=== PATIENT | female | born 1980 | race Caucasian/White ===

== ENCOUNTER 2017-11-09 01:42 | Emergency (ER) | payer SELFPAY ==
--- NOTE | 2017-11-09 01:57 | ED.PDOC ---
History of Present Illness - General Chief Complaint: Problem Stated Complaint: rt flank pain Time Seen by Provider: 11/09/17 01:57 Source: patient Exam Limitations: no limitations - History of Present Illness Initial Comments: Sabrina Zapata 37 y/o female stated had bilateral sharp flank pain mostly on her right side the last 4 days intemittenly but since not getting better feels like getting worse and also had fever yesterday;no dysuria ,no hematuria . Timing/Duration: other - 4 days Severity: moderate Improving Factors: nothing Worsening Factors: eating Associated Symptoms: other - see hpi Allergies/Adverse Reactions: Allergies NO KNOWN ALLERGY Allergy (Verified 07/30/14 20:18) Home Medications: Ambulatory Orders Acetaminophen W/ Codeine [Tylenol W/ CODEINE #3] 1 ea PO Q4-6H PRN #14 Cephalexin [Keflex] 500 mg PO TID #30 cap 07/30/14 Baclofen 10 mg PO BID PRN #20 tab 11/09/17 Naproxen [Naproxen Dr] 375 mg PO BID #20 tab 11/09/17 Review of Systems - Review of Systems Constitutional: States: no symptoms reported EENTM: States: no symptoms reported Respiratory: States: no symptoms reported Cardiology: States: no symptoms reported Gastrointestinal/Abdominal: States: see HPI Genitourinary: States: no symptoms reported Musculoskeletal: States: no symptoms reported Skin: States: no symptoms reported Neurological: States: no symptoms reported All other Systems: Reviewed and Negative, No Change from Baseline Past Medical History (General) - Patient Medical History Hx Hypertension: Yes Surgical History: other - btl - Vaccination History Hx Tetanus, Diphtheria Vaccination: Yes Hx Influenza Vaccination: No Hx Pneumococcal Vaccination: No - Social History Hx Alcohol Use: No Hx Substance Use: No Hx Substance Use Treatment: No Hx Depression: No - Female History Patient is a Female of Child Bearing Age (10 -59 yrs old): Yes Hx Last Menstrual Period: 11/09/17 Patient : No Family Medical History - Family History Mother Family History: Unknown Living Status: Physical Exam - Physical Exam General Appearance: Alert, Comfortable, No apparent distress Eye Exam: bilateral normal Ears, Nose, Throat: normal ENT inspection, normal pharynx Neck: non-tender, supple Respiratory: chest non-tender, lungs clear, normal breath sounds Cardiovascular/Chest: normal peripheral pulses, regular rate, rhythm, no murmur Peripheral Pulses: radial,right: 2+, radial,left: 2+ Gastrointestinal/Abdominal: normal bowel sounds, non tender, soft, no organomegaly Back Exam: no CVA tenderness, no vertebral tenderness Extremity: non-tender, normal inspection, no calf tenderness Neurologic: alert, oriented x 3 Skin Exam: normal color, warm/dry Progress - Progress Progress: 11/09/17 02:47 Vital Signs - 8 hr 11/09/17 01:57 Temperature 97.8 F Pulse Rate [ 72 left] Respiratory 18 Rate Blood Pressure 148/97 [left] O2 Sat by Pulse 18 L Oximetry - Results/Orders Results/Orders: 11/09/17 01:58 IV Care:Saline Lock per Protoc QSHIFT Lactated Ringers [Lr] 1,000 ml IVS ONCE 11/09/17 02:40 HCG,QUALITATIVE URINE Stat Laboratory Results - last 24 hr 11/09/17 11/09/17 11/09/17 01:56 01:58 01:58 WBC 5.0 RBC 4.81 Hgb 14.6 Hct 42.9 MCV 89.2 MCH 30.4 MCHC 34.1 RDW 13.1 Plt Count 275 MPV 6.6 L Absolute Neuts (auto) 2.60 Absolute Lymphs (auto) 1.40 Absolute Monos (auto) 0.70 Absolute Eos (auto) 0.20 Absolute Basos (auto) 0.10 Neutrophils % 51.8 Lymphocytes % 28.2 Monocytes % 14.4 H Eosinophils % 4.5 Basophils % 1.1 Sodium 135 Potassium 4.0 Chloride 100 L Carbon Dioxide 30 Anion Gap 9.0 L BUN 9 Creatinine 0.66 BUN/Creatinine Ratio 13.6 Random Glucose 103 Serum Osmolality 269.0 L Calcium 8.9 Total Bilirubin 0.3 AST 21 ALT 24 Alkaline Phosphatase 62 Serum Total Protein 7.3 Albumin 3.9 Globulin 3.4 Albumin/Globulin Ratio 1.1 Lipase 30 Urine Color Yellow Urine Appearance Clear Urine pH 7.0 Ur Specific [place] 1.020 Urine Protein Negative Urine Glucose (UA) Negative Urine Ketones Negative Urine Blood Trace-intact H Urine Nitrite Negative Urine Bilirubin Negative Urine Urobilinogen 0.2 Ur Leukocyte Esterase Negative Urine RBC 0-1 Urine WBC 0 Ur Epithelial Cells 5-10 Urine Bacteria 0 Urine Opiates Screen Urine Barbiturates Ur Phencyclidine Scrn U Amphetamin/Meth Scrn U Benzodiazepines Scrn U Cocaine Metab Screen U Cannabinoids Screen 11/09/17 01:58 WBC RBC Hgb Hct MCV MCH MCHC RDW Plt Count MPV Absolute Neuts (auto) Absolute Lymphs (auto) Absolute Monos (auto) Absolute Eos (auto) Absolute Basos (auto) Neutrophils % Lymphocytes % Monocytes % Eosinophils % Basophils % Sodium Potassium Chloride Carbon Dioxide Anion Gap BUN Creatinine BUN/Creatinine Ratio Random Glucose Serum Osmolality Calcium Total Bilirubin AST ALT Alkaline Phosphatase Serum Total Protein Albumin Globulin Albumin/Globulin Ratio Lipase Urine Color Urine Appearance Urine pH Ur Specific [place] Urine Protein Urine Glucose (UA) Urine Ketones Urine Blood Urine Nitrite Urine Bilirubin Urine Urobilinogen Ur Leukocyte Esterase Urine RBC Urine WBC Ur Epithelial Cells Urine Bacteria Urine Opiates Screen Negative Urine Barbiturates Negative Ur Phencyclidine Scrn Negative U Amphetamin/Meth Scrn Negative U Benzodiazepines Scrn Negative U Cocaine Metab Screen Negative U Cannabinoids Screen Negative - EKG/XRAY/CT CT Ordered: Yes - abd/pelvis-bilateral non obstructing nephrolithiasis Departure - Departure Clinical Impression: Bilateral flank pain, Bilateral nephrolithiasis Time of Disposition: 02:49 Disposition: Discharge to Home or Self Care Condition: Fair Departure Forms: ED Discharge - Pt. Copy, Patient Portal Self Enrollment Instructions: DI for Kidney Stones Diet: other - need to drink extra fluids Referrals: Regulo Love MD [Primary Care Provider] - 1-2 Weeks Prescriptions: Baclofen 10 mg PO BID PRN #20 tab PRN Reason: Muscle Spasms Naproxen [Naproxen Dr] 375 mg PO BID #20 tab Home Medications: Ambulatory Orders Acetaminophen W/ Codeine [Tylenol W/ CODEINE #3] 1 ea PO Q4-6H PRN #14 Cephalexin [Keflex] 500 mg PO TID #30 cap 07/30/14 Baclofen 10 mg PO BID PRN #20 tab 11/09/17 Naproxen [Naproxen Dr] 375 mg PO BID #20 tab 11/09/17 Additional Instructions: Follow up with primary Md in am 09 November 2017 if needed
[2017-11-09] MEDS ORDERED: PROMETHAZINE HCL INJ 25 MG/ML VIAL IM ONE (01:58)
[2017-11-09] MEDS ORDERED: LACTATED RINGERS 1,000 ML IVS ONE (01:58)
[2017-11-09] MEDS ORDERED: KETOROLAC TROMETHAMINE INJ 30 MG/ML VIAL IV ONE (01:58)
[2017-11-09] MEDS ORDERED: ORPHENADRINE CITRATE 30 MG/ML AMP IV ONE (01:59)
--- NOTE | 2017-11-09 02:39 | CT ---
EXAM DESCRIPTION: CT ABDOMEN AND PELVIS WITHOUT CONTRAST CLINICAL HISTORY: flank pain COMPARISON: None Available. TECHNIQUE: CT of the abdomen and pelvis without IV contrast. Evaluation of the solid organs and vasculature is suboptimal due to lack of IV contrast. DLP: 388.69 mGy-cm FINDINGS: Lung Bases: The visualized lung bases are clear. Right lung base calcified granuloma. Bones: No destructive bone lesions identified. Abdomen: Liver: The liver has normal size and density. Gallbladder: No calcified gallstones. Spleen, Pancreas, and Adrenal Glands: The spleen, pancreas, and adrenal glands are unremarkable. Kidneys: Multiple punctate bilateral nonobstructing nephrolithiasis. Obstructing ureteral calculi identified. No hydronephrosis. Vasculature: The aorta and IVC have normal caliber and position. Stomach: The stomach and duodenum have normal course. Other: No free intraperitoneal air. Small fluid. Pelvis: Bladder: Urinary bladder is unremarkable. Bowel: No dilated loops of large or small bowel. Appendix: Normal appendix. Pelvis: Uterus is not enlarged. IMPRESSION: 1. Small amount of free pelvic fluid. 2. No obstructing ureteral calculi or hydronephrosis. 3. Multiple punctate bilateral nonobstructing nephrolithiasis. This exam was performed according to our departmental dose-optimization program, which includes automated exposure control, adjustment of the mA and/or kV according to patient size and/or use of iterative reconstruction technique. Electronically signed by: Julio Villalpando 11/09/2017 2:37 AM CDT
[2017-11-09 02:55] VITALS: O2SAT 98
[2017-11-09 03:01] VITALS: BP 139/71; TEMP 98.2
== END 2017-11-09 03:01 | disposition home or self-care (01) ==
LOC: ER 01:42
DX: N20.0 Calculus of kidney (principal); I10 Essential (primary) hypertension
CPT/HCPCS: 36415; 74176; 80053; 80307; 81001; 81025; 83690; 85025; J1885; J2360; J2550; J7120

== ENCOUNTER 2017-11-16 22:23 | Emergency (ER) | payer SELFPAY ==
[2017-11-16 22:41] VITALS: TEMP 101.4; O2SAT 98
--- NOTE | 2017-11-16 22:54 | ED.PDOC ---
History of Present Illness - General Chief Complaint: Fever Stated Complaint: bloated, N/V, fever, chills Time Seen by Provider: 11/16/17 22:34 Source: patient Exam Limitations: no limitations - History of Present Illness Initial Comments: Sabrina Zapata 37 y/o female stated that she had intermittent fever ,chills and bloated feeling for the last one week.She was seen here in ER last week for flank pain and had blood work done which were all normal also CT abdomen showed non obstructing bilateral nephrolithiasis.Had also loss of appetite with abdominal fullness. Timing/Duration: other - one week Severity: moderate Improving Factors: nothing Worsening Factors: eating Associated Symptoms: loss of appetite, other - see hpi Allergies/Adverse Reactions: Allergies NO KNOWN ALLERGY Allergy (Verified 11/16/17 22:41) Home Medications: Ambulatory Orders Acetaminophen W/ Codeine [Tylenol W/ CODEINE #3] 1 ea PO Q4-6H PRN #14 Cephalexin [Keflex] 500 mg PO TID #30 cap 07/30/14 Baclofen 10 mg PO BID PRN #20 tab 11/09/17 Naproxen [Naproxen Dr] 375 mg PO BID #20 tab 11/09/17 Review of Systems - Review of Systems Constitutional: States: fever EENTM: States: no symptoms reported Respiratory: States: no symptoms reported Cardiology: States: no symptoms reported Gastrointestinal/Abdominal: States: see HPI Musculoskeletal: States: no symptoms reported Skin: States: no symptoms reported Neurological: States: no symptoms reported Hematologic/Lymphatic: States: no symptoms reported Past Medical History (General) - Patient Medical History Hx Seizures: No Hx Stroke: No Hx Dementia: No Hx Asthma: No Hx of COPD: No Hx Cardiac Disorders: No Hx Congestive Heart Failure: No Hx Pacemaker: No Hx Hypertension: No Hx Thyroid Disease: No Hx Diabetes: No Hx Gastroesophageal Reflux: No Hx Renal Disease: No Hx Cancer: No Hx of HIV: No Hx Hepatitis C: No Hx MRSA: No Surgical History: other - BTL - Vaccination History Hx Tetanus, Diphtheria Vaccination: Yes Hx Influenza Vaccination: No Hx Pneumococcal Vaccination: No - Social History Hx Tobacco Use: Yes Hx Alcohol Use: No Hx Substance Use: No Hx Substance Use Treatment: No Hx Depression: No - Female History Hx Last Menstrual Period: 11/09/17 Patient : No Family Medical History - Family History Mother Family History: Unknown Living Status: Physical Exam - Physical Exam General Appearance: Alert, Comfortable Eye Exam: bilateral normal Ears, Nose, Throat: normal ENT inspection, normal pharynx Neck: full range of motion, supple, normal inspection Respiratory: lungs clear, normal breath sounds, no respiratory distress Cardiovascular/Chest: normal peripheral pulses, regular rate, rhythm, no murmur Peripheral Pulses: radial,right: 2+, radial,left: 2+ Gastrointestinal/Abdominal: normal bowel sounds, non tender, soft, no organomegaly, distended Back Exam: no CVA tenderness, no vertebral tenderness Extremity: non-tender, no pedal edema, no calf tenderness Neurologic: alert, oriented x 3 Skin Exam: normal color, warm/dry Lymphatic: no adenopathy Progress - Progress Progress: 11/17/17 00:38 11/16/17 22:56 Catheter:Straight .ONCE IV Care:Saline Lock per Protoc QSHIFT Laboratory Results - last 24 hr 11/16/17 11/16/17 11/16/17 23:14 23:14 23:14 WBC 9.4 RBC 4.75 Hgb 14.3 Hct 41.9 MCV 88.3 MCH 30.1 MCHC 34.1 RDW 13.4 Plt Count 248 MPV 6.7 L Absolute Neuts (auto) 3.80 Absolute Lymphs (auto) 4.30 H Absolute Monos (auto) 0.90 H Absolute Eos (auto) 0.30 Absolute Basos (auto) 0.10 Neutrophils % 40.1 L Lymphocytes % 45.7 Monocytes % 10.0 H Eosinophils % 3.5 Basophils % 0.7 Sodium 135 Potassium 3.5 L Chloride 100 L Carbon Dioxide 29 Anion Gap 9.5 L BUN 9 Creatinine 0.69 BUN/Creatinine Ratio 13.0 Random Glucose 103 Serum Osmolality 269.0 L Lactic Acid Calcium 8.6 Total Bilirubin 0.4 AST 95 H ALT 131 H Alkaline Phosphatase 162 H C-Reactive Protein Serum Total Protein 7.2 Albumin 3.7 Globulin 3.5 Albumin/Globulin Ratio 1.1 Urine Color Urine Appearance Urine pH Ur Specific [place] Urine Protein Urine Glucose (UA) Urine Ketones Urine Blood Urine Nitrite Urine Bilirubin Urine Urobilinogen Ur Leukocyte Esterase Urine RBC Urine WBC Ur Epithelial Cells Amorphous Sediment Urine Bacteria Urine Mucus Urine HCG, Qual Urine Opiates Screen Negative Urine Barbiturates Negative Ur Phencyclidine Scrn Negative U Amphetamin/Meth Scrn Negative U Benzodiazepines Scrn Negative U Cocaine Metab Screen Negative U Cannabinoids Screen Negative Monoscreen 11/16/17 11/16/17 11/16/17 23:14 23:14 23:14 WBC RBC Hgb Hct MCV MCH MCHC RDW Plt Count MPV Absolute Neuts (auto) Absolute Lymphs (auto) Absolute Monos (auto) Absolute Eos (auto) Absolute Basos (auto) Neutrophils % Lymphocytes % Monocytes % Eosinophils % Basophils % Sodium Potassium Chloride Carbon Dioxide Anion Gap BUN Creatinine BUN/Creatinine Ratio Random Glucose Serum Osmolality Lactic Acid 0.7 Calcium Total Bilirubin AST ALT Alkaline Phosphatase C-Reactive Protein Serum Total Protein Albumin Globulin Albumin/Globulin Ratio Urine Color Yellow Urine Appearance Sl cloudy Urine pH 6.0 Ur Specific [place] >= 1.030 Urine Protein Trace Urine Glucose (UA) Negative Urine Ketones Trace Urine Blood Negative Urine Nitrite Negative Urine Bilirubin Negative Urine Urobilinogen 0.2 Ur Leukocyte Esterase Negative Urine RBC 0-1 Urine WBC 1-3 Ur Epithelial Cells 10-20 Amorphous Sediment 1+ Urine Bacteria 1+ Urine Mucus Large Urine HCG, Qual Negative Urine Opiates Screen Urine Barbiturates Ur Phencyclidine Scrn U Amphetamin/Meth Scrn U Benzodiazepines Scrn U Cocaine Metab Screen U Cannabinoids Screen Monoscreen 11/16/17 11/17/17 23:23 00:19 WBC RBC Hgb Hct MCV MCH MCHC RDW Plt Count MPV Absolute Neuts (auto) Absolute Lymphs (auto) Absolute Monos (auto) Absolute Eos (auto) Absolute Basos (auto) Neutrophils % Lymphocytes % Monocytes % Eosinophils % Basophils % Sodium Potassium Chloride Carbon Dioxide Anion Gap BUN Creatinine BUN/Creatinine Ratio Random Glucose Serum Osmolality Lactic Acid Calcium Total Bilirubin AST ALT Alkaline Phosphatase C-Reactive Protein 1.2 H Serum Total Protein Albumin Globulin Albumin/Globulin Ratio Urine Color Urine Appearance Urine pH Ur Specific [place] Urine Protein Urine Glucose (UA) Urine Ketones Urine Blood Urine Nitrite Urine Bilirubin Urine Urobilinogen Ur Leukocyte Esterase Urine RBC Urine WBC Ur Epithelial Cells Amorphous Sediment Urine Bacteria Urine Mucus Urine HCG, Qual Urine Opiates Screen Urine Barbiturates Ur Phencyclidine Scrn U Amphetamin/Meth Scrn U Benzodiazepines Scrn U Cocaine Metab Screen U Cannabinoids Screen Monoscreen Positive 11/17/17 00:39 Vital Signs - 8 hr 11/16/17 22:30 Temperature 101.4 F H Pulse Rate [ 86 monitor] Respiratory 16 Rate Blood Pressure 130/87 [Left Arm] O2 Sat by Pulse 98 Oximetry - Results/Orders Results/Orders: 11/16/17 22:56 Catheter:Straight .ONCE IV Care:Saline Lock per Protoc QSHIFT Laboratory Results - last 24 hr 11/16/17 11/16/17 11/16/17 23:14 23:14 23:14 WBC 9.4 RBC 4.75 Hgb 14.3 Hct 41.9 MCV 88.3 MCH 30.1 MCHC 34.1 RDW 13.4 Plt Count 248 MPV 6.7 L Absolute Neuts (auto) 3.80 Absolute Lymphs (auto) 4.30 H Absolute Monos (auto) 0.90 H Absolute Eos (auto) 0.30 Absolute Basos (auto) 0.10 Neutrophils % 40.1 L Lymphocytes % 45.7 Monocytes % 10.0 H Eosinophils % 3.5 Basophils % 0.7 Sodium 135 Potassium 3.5 L Chloride 100 L Carbon Dioxide 29 Anion Gap 9.5 L BUN 9 Creatinine 0.69 BUN/Creatinine Ratio 13.0 Random Glucose 103 Serum Osmolality 269.0 L Lactic Acid Calcium 8.6 Total Bilirubin 0.4 AST 95 H ALT 131 H Alkaline Phosphatase 162 H C-Reactive Protein Serum Total Protein 7.2 Albumin 3.7 Globulin 3.5 Albumin/Globulin Ratio 1.1 Urine Color Urine Appearance Urine pH Ur Specific [place] Urine Protein Urine Glucose (UA) Urine Ketones Urine Blood Urine Nitrite Urine Bilirubin Urine Urobilinogen Ur Leukocyte Esterase Urine RBC Urine WBC Ur Epithelial Cells Amorphous Sediment Urine Bacteria Urine Mucus Urine HCG, Qual Urine Opiates Screen Negative Urine Barbiturates Negative Ur Phencyclidine Scrn Negative U Amphetamin/Meth Scrn Negative U Benzodiazepines Scrn Negative U Cocaine Metab Screen Negative U Cannabinoids Screen Negative Monoscreen 11/16/17 11/16/17 11/16/17 23:14 23:14 23:14 WBC RBC Hgb Hct MCV MCH MCHC RDW Plt Count MPV Absolute Neuts (auto) Absolute Lymphs (auto) Absolute Monos (auto) Absolute Eos (auto) Absolute Basos (auto) Neutrophils % Lymphocytes % Monocytes % Eosinophils % Basophils % Sodium Potassium Chloride Carbon Dioxide Anion Gap BUN Creatinine BUN/Creatinine Ratio Random Glucose Serum Osmolality Lactic Acid 0.7 Calcium Total Bilirubin AST ALT Alkaline Phosphatase C-Reactive Protein Serum Total Protein Albumin Globulin Albumin/Globulin Ratio Urine Color Yellow Urine Appearance Sl cloudy Urine pH 6.0 Ur Specific [place] >= 1.030 Urine Protein Trace Urine Glucose (UA) Negative Urine Ketones Trace Urine Blood Negative Urine Nitrite Negative Urine Bilirubin Negative Urine Urobilinogen 0.2 Ur Leukocyte Esterase Negative Urine RBC 0-1 Urine WBC 1-3 Ur Epithelial Cells 10-20 Amorphous Sediment 1+ Urine Bacteria 1+ Urine Mucus Large Urine HCG, Qual Negative Urine Opiates Screen Urine Barbiturates Ur Phencyclidine Scrn U Amphetamin/Meth Scrn U Benzodiazepines Scrn U Cocaine Metab Screen U Cannabinoids Screen Monoscreen 11/16/17 11/17/17 23:23 00:19 WBC RBC Hgb Hct MCV MCH MCHC RDW Plt Count MPV Absolute Neuts (auto) Absolute Lymphs (auto) Absolute Monos (auto) Absolute Eos (auto) Absolute Basos (auto) Neutrophils % Lymphocytes % Monocytes % Eosinophils % Basophils % Sodium Potassium Chloride Carbon Dioxide Anion Gap BUN Creatinine BUN/Creatinine Ratio Random Glucose Serum Osmolality Lactic Acid Calcium Total Bilirubin AST ALT Alkaline Phosphatase C-Reactive Protein 1.2 H Serum Total Protein Albumin Globulin Albumin/Globulin Ratio Urine Color Urine Appearance Urine pH Ur Specific [place] Urine Protein Urine Glucose (UA) Urine Ketones Urine Blood Urine Nitrite Urine Bilirubin Urine Urobilinogen Ur Leukocyte Esterase Urine RBC Urine WBC Ur Epithelial Cells Amorphous Sediment Urine Bacteria Urine Mucus Urine HCG, Qual Urine Opiates Screen Urine Barbiturates Ur Phencyclidine Scrn U Amphetamin/Meth Scrn U Benzodiazepines Scrn U Cocaine Metab Screen U Cannabinoids Screen Monoscreen Positive - EKG/XRAY/CT XRAY: abdomen - peribronchial cuffing;no bowel blockage;? hepatomegaly Departure - Departure Clinical Impression: Abnormal liver function test, Mononucleosis, infectious, with hepatitis Fever Qualifiers: Fever type: unspecified Qualified Code(s): R50.9 - Fever, unspecified Time of Disposition: 00:42 Disposition: Discharge to Home or Self Care Condition: Fair Departure Forms: ED Discharge - Pt. Copy, Patient Portal Self Enrollment Instructions: Mononucleosis, Mononucleosis (DC) Diet: other - May have ice cream milkshake as needed;Drink extra fluids Referrals: Regulo Love MD [Primary Care Provider] - 1-2 Weeks Home Medications: Ambulatory Orders Acetaminophen W/ Codeine [Tylenol W/ CODEINE #3] 1 ea PO Q4-6H PRN #14 Cephalexin [Keflex] 500 mg PO TID #30 cap 07/30/14 Baclofen 10 mg PO BID PRN #20 tab 11/09/17 Naproxen [Naproxen Dr] 375 mg PO BID #20 tab 11/09/17 Additional Instructions: Follow up with primary Md 21 November 2017;May take Tylenol 500 mg every 8 hours for fever NOT MORE THAN 5 PILLS/DAY
[2017-11-16] MEDS ORDERED: LACTATED RINGERS 1,000 ML IVS ONE (22:56)
[2017-11-16] MEDS ORDERED: ACETAMINOPHEN 500 MG TAB PO ONE (22:57)
--- NOTE | 2017-11-17 00:06 | RAD ---
EXAM: TWO VIEW SUPINE and UPRIGHT ABDOMEN RADIOGRAPHS CLINICAL INDICATION: Fever. COMPARISON: None. FINDINGS: No bowel obstruction or extraluminal bowel gas. No evidence of pneumatosis intestinalis or bowel wall thickening. Probable phleboliths in the lower left pelvis. No biliary or portal gas. Suspect hepatomegaly. Bones appear normal. No abnormal abdominal or pelvic calcifications. IMPRESSION: Suspect hepatomegaly. Otherwise, normal examination. Electronically signed by: Viktor Clark MD 11/17/2017 12:05 AM CDT
--- NOTE | 2017-11-17 00:08 | RAD ---
EXAM: AP CHEST RADIOGRAPH CLINICAL INDICATION: Fever. COMPARISON: Chest radiograph April 25, 2012. FINDINGS: Cardiac size and pulmonary vasculature are normal. New bilateral bronchial wall thickening suspicious for bronchitis versus reactive airways disease. Lungs are otherwise clear. No pleural effusions or pneumothorax. No hilar or mediastinal lymphadenopathy. No mediastinal widening. No extraluminal bowel gas under the hemidiaphragms. Bones are intact on this single view. IMPRESSION: Bronchitis versus reactive airways disease without superimposed pneumonia. Electronically signed by: Viktor Clark MD 11/17/2017 12:07 AM CDT
[2017-11-17 00:56] VITALS: BP 126/80
== END 2017-11-17 00:55 | disposition home or self-care (01) ==
LOC: ER 22:23
DX: B27.89 Other infectious mononucleosis with other complication (principal); R50.81 Fever presenting with conditions classified elsewhere; R94.5 Abnormal results of liver function studies; Z87.891 Personal history of nicotine dependence
CPT/HCPCS: 36415; 71045; 74019; 80053; 80307; 81001; 81025; 83605; 85025; 86140; 86403; J7120